=== PATIENT | female | born 1950 | race Caucasian/White ===

== ENCOUNTER 2016-08-28 11:32 | Emergency (ER) | payer MEDICARE, BC ==
[~2016-08-28] VITALS: Ht 172.7 cm; Wt 106.8 kg
[~2016-08-28 11:32] MED LIST: ARMOUR THYROID120 MG PO; ASPIRIN 81M81 MG/TA2 PO; ASPIRIN E.C. 8181 MG; IPRATROPIUM BROM3 M1 IH; LEVAQUIN 750MG750 M1 PO; MEDROL 4MG DOSPA4 MG PO; NIGHT-TIME COL300 ML; NORCO 325 MG-51 TAB PO; PRINIVIL40 MG PO; RT ALBUTER2.5 MG/0.5 IH; ZOFRAN 4MG T4 MG/TAB PO
[2016-08-28 11:40] VITALS: TEMP 98
[2016-08-28] MEDS ORDERED: SYNTHROID0.075 MG/T PO (12:00)
[2016-08-28] MEDS ORDERED: ELIQUIS 5MG PO (12:04)
[2016-08-28 12:33] LABS: INR 1.9 (0.8-3.0); PROTHROMBIN TIME 21.3 SECONDS (9.7-12.8)
[2016-08-28 12:34] LABS: BASO # 0.1 (0.0-0.2); BASO % 0.8 % (0.0-2.0); EOS # 0.2 (0.0-0.7); EOS % 2.7 % (0-4.0); GRAN # 2.7 (1.4-6.5); GRAN % 44.5 % (42.2-75.2); HEMATOCRIT 40.4 % (37.0-47.0); HEMOGLOBIN 13.3 g/dl (12.5-16.0); LYMPH # 2.5 (1.2-3.4); LYMPH % 41.1 % (20.0-51.0); MEAN CELL VOLUME 100 fl (80.0-100.0); MEAN CORPUSCULAR HEMOGLOBIN 33 pg (27.0-31.0); MEAN CORPUSCULAR HGB CONC 33 g/dl (33.0-37.0); MEAN PLATELET VOLUME 12.2 fl (7.4-10.4); MONO # 0.6 (0.1-0.6); MONO % 10.7 % (1.7-9.3); PLATELET COUNT 127 K/mm3 (130-400); RED BLOOD COUNT 4.05 M/mm3 (4.10-5.30); REDCELL DISTRIBUTION WIDTH-CV 14.5 % (11.5-14.5)
[2016-08-28 12:36] LABS: PARTIAL THROMBOPLASTIN TIME 37.2 SECONDS (26.0-37.0)
[2016-08-28 12:41] LABS: ADJUSTED CALCIUM 10.1 mg/dL (8.4-10.2); ALBUMIN 3.6 gm/dL (3.5-5.0); BILIRUBIN,TOTAL 1.2 mg/dL (0.0-1.0); CALCIUM 9.8 mg/dL (8.4-10.2); CREATININE, serum 0.91 mg/dL (0.52-1.25); POTASSIUM 4.3 mmol/L (3.4-5.0); TOTAL PROTEIN 7.8 gm/dL (6.4-8.2)
[2016-08-28 12:52] LABS: TROPONIN-I 0.021 ng/mL (0.000-0.034)
[2016-08-28 14:41] VITALS: BP 118/40; PULSE 48
== END 2016-08-28 14:43 | disposition home or self-care (01) ==
LOC: COL.ER 11:32
PROVIDERS: Family Medicine
DX: R07.89 Other chest pain (principal); I25.10 Atherosclerotic heart disease of native coronary artery without angina pectoris; Z95.1 Presence of aortocoronary bypass graft

== ENCOUNTER → 2016-12-09 | Outpatient (CLI) | payer MEDICARE, BC ==
[~2016-12-09] MED LIST changes: +ELIQUIS 5MG PO; +SYNTHROID0.075 MG/T PO
== END ==
LOC: MC.RAD 09:13
DX: Z12.31 Encounter for screening mammogram for malignant neoplasm of breast (principal)

== ENCOUNTER 2017-01-06 00:57 | Emergency (ER) | payer MEDICARE, BC ==
[2017-01-06 01:02] VITALS: TEMP 98.8
[2017-01-06 01:21] LABS: BASO # 0.1 (0.0-0.2); BASO % 0.6 % (0.0-2.0); EOS # 0.1 (0.0-0.7); EOS % 1.1 % (0-4.0); GRAN # 5.4 (1.4-6.5); GRAN % 63.1 % (42.2-75.2); LYMPH # 2.1 (1.2-3.4); MEAN CELL VOLUME 95 fl (80.0-100.0); MEAN CORPUSCULAR HEMOGLOBIN 32 pg (27.0-31.0); MEAN CORPUSCULAR HGB CONC 33 g/dl (33.0-37.0); MEAN PLATELET VOLUME 11.3 fl (7.4-10.4); MONO # 0.8 (0.1-0.6); MONO % 9.8 % (1.7-9.3); PLATELET COUNT 129 K/mm3 (130-400); REDCELL DISTRIBUTION WIDTH-CV 14.6 % (11.5-14.5); WHITE BLOOD COUNT 8.5 K/mm3 (4.8-10.8)
[2017-01-06 01:26] LABS: INR 1.1 (0.8-3.0); PROTHROMBIN TIME 12.7 SECONDS (9.7-12.8)
[2017-01-06 01:29] LABS: PARTIAL THROMBOPLASTIN TIME 31.2 SECONDS (26.0-37.0)
[2017-01-06 01:31] LABS: ADJUSTED CALCIUM 9.6 mg/dL (8.4-10.2); ALBUMIN 3.5 gm/dL (3.5-5.0); BILIRUBIN,TOTAL 0.6 mg/dL (0.0-1.0); CALCIUM 9.2 mg/dL (8.4-10.2); CREATININE, serum 0.93 mg/dL (0.52-1.25); POTASSIUM 4.3 mmol/L (3.4-5.0); TOTAL PROTEIN 7.7 gm/dL (6.4-8.2)
[2017-01-06 01:43] LABS: TROPONIN-I 0.014 ng/mL (0.000-0.034)
[2017-01-06 04:40] VITALS: BP 145/68; PULSE 82
== END 2017-01-06 04:41 | disposition home or self-care (01) ==
LOC: COL.ER 00:57
PROVIDERS: Emergency Medicine
DX: R07.89 Other chest pain (principal); I25.10 Atherosclerotic heart disease of native coronary artery without angina pectoris; I10 Essential (primary) hypertension; E03.9 Hypothyroidism, unspecified; Z87.891 Personal history of nicotine dependence; Z95.1 Presence of aortocoronary bypass graft; Z98.890 Other specified postprocedural states

== ENCOUNTER 2017-07-19 18:06 | Emergency (ER) | payer MEDICARE, BC ==
[~2017-07-19] VITALS: Ht 172.7 cm; Wt 109.1 kg
[2017-07-19 18:11] VITALS: BP 165/74; TEMP 98.6
[2017-07-19 19:16] LABS: BASO # 0.1 (0.0-0.2); BASO % 0.6 % (0.0-2.0); EOS % 0.2 % (0-4.0); GRAN % 71.3 % (42.2-75.2); HEMATOCRIT 45.1 % (37.0-47.0); HEMOGLOBIN 14.9 g/dl (12.5-16.0); LYMPH # 1.7 (1.2-3.4); LYMPH % 17.5 % (20.0-51.0); MEAN CELL VOLUME 99 fl (80.0-100.0); MEAN CORPUSCULAR HEMOGLOBIN 33 pg (27.0-31.0); MEAN CORPUSCULAR HGB CONC 33 g/dl (33.0-37.0); MEAN PLATELET VOLUME 11.8 fl (7.4-10.4); MONO % 9.9 % (1.7-9.3); PLATELET COUNT 131 K/mm3 (130-400); RED BLOOD COUNT 4.58 M/mm3 (4.10-5.30); REDCELL DISTRIBUTION WIDTH-CV 15.3 % (11.5-14.5)
[2017-07-19 19:24] LABS: ALBUMIN 4.4 gm/dL (3.5-5.0); BILIRUBIN,TOTAL 1.1 mg/dL (0.0-1.0); CALCIUM 10.1 mg/dL (8.4-10.2); CREATININE, serum 1.01 mg/dL (0.52-1.25); POTASSIUM 4.1 mmol/L (3.4-5.0); TOTAL PROTEIN 9.1 gm/dL (6.4-8.2)
[2017-07-19 21:43] VITALS: PULSE 83
== END 2017-07-19 21:31 | disposition home or self-care (01) ==
LOC: COL.ER 18:06
PROVIDERS: Emergency Medicine
DX: R10.11 Right upper quadrant pain (principal); I25.10 Atherosclerotic heart disease of native coronary artery without angina pectoris; Z95.1 Presence of aortocoronary bypass graft; Z98.890 Other specified postprocedural states
CPT/HCPCS: Q9967

== ENCOUNTER 2017-08-22 12:15 | Day surgery (SDC) | payer MEDICARE, BC ==
[~2017-08-22] VITALS: Ht 172.7 cm; Wt 110.0 kg
[2017-08-22 13:07] VITALS: BP 123/70; PULSE 68; TEMP 97.9
[2017-08-22] MEDS ORDERED: [UNRECOGNIZED DRUG - OTHER] PO (13:15)
[2017-08-22] MEDS ORDERED: PHARMASSURE CHE30 MG PO (13:16)
[2017-08-22] MEDS ORDERED: NATURE'S BLEN1200 MG PO (13:17)
[2017-08-22] MEDS ORDERED: VITAMIN B COMPL1 T16 PO (13:18)
[2017-08-22] MEDS ORDERED: VITAMIN E1000 U/CAP PO (13:19)
[2017-08-22] MEDS ORDERED: ARMOUR THYROID90 MG PO (13:20)
[2017-08-22] MEDS ORDERED: NATURE'S BLEND600 M2 PO (13:22)
[2017-08-22] MEDS ORDERED: MILK THISTLE150 MG PO (13:23)
[2017-08-22] MEDS ORDERED: THE MEDICINE S200 M2 PO (13:23)
[2017-08-22] MEDS ORDERED: ASPIRIN E.C. 8181 MG PO (13:25)
[2017-08-22] MEDS ORDERED: PROBIOTIC-MAJOR PO (13:25)
[2017-08-22] MEDS ORDERED: VITAMIN C500 MG PO (13:26)
[2017-08-22] MEDS ORDERED: CHOLESTEROL REDUCTIO PO (13:27)
[2017-08-22] MEDS ORDERED: NUTRIFERON PO (13:28)
[2017-08-22] MEDS ORDERED: CAROTOMAX PO (13:29)
[2017-08-22 15:16] VITALS: BP 129/76; PULSE 64; TEMP 97.2
[2017-08-22 15:30] VITALS: BP 130/80; PULSE 58
[2017-08-22 15:45] VITALS: BP 145/80; PULSE 58
[2017-08-22 16:07] VITALS: BP 141/84; PULSE 59
[2017-08-22 16:35] VITALS: BP 122/68; PULSE 60
== END 2017-08-22 16:45 | disposition home or self-care (01) ==
LOC: SDCO 12:15
DX: K44.9 Diaphragmatic hernia without obstruction or gangrene (principal); K29.30 Chronic superficial gastritis without bleeding; K26.9 Duodenal ulcer, unspecified as acute or chronic, without hemorrhage or perforation; R12 Heartburn; J44.9 Chronic obstructive pulmonary disease, unspecified; I10 Essential (primary) hypertension; I25.10 Atherosclerotic heart disease of native coronary artery without angina pectoris; E03.9 Hypothyroidism, unspecified; I25.2 Old myocardial infarction; Z95.1 Presence of aortocoronary bypass graft; Z88.5 Allergy status to narcotic agent
CPT/HCPCS: J2704; J7030

== ENCOUNTER 2017-11-22 09:48 | Emergency (ER) | payer MEDICARE, BC ==
[~2017-11-22] VITALS: Ht 172.7 cm; Wt 111.4 kg
[~2017-11-22 09:48] MED LIST changes: +ARMOUR THYROID90 MG PO; +ASPIRIN E.C. 8181 MG PO; +CAROTOMAX PO; +CHOLESTEROL REDUCTIO PO; +MILK THISTLE150 MG PO; +NATURE'S BLEN1200 MG PO; +NATURE'S BLEND600 M2 PO; +NUTRIFERON PO; +PHARMASSURE CHE30 MG PO; +PROBIOTIC-MAJOR PO; +THE MEDICINE S200 M2 PO; +VITAMIN B COMPL1 T16 PO; +VITAMIN C500 MG PO; +VITAMIN E1000 U/CAP PO; +[UNRECOGNIZED DRUG - OTHER] PO
[2017-11-22 09:50] VITALS: TEMP 97.8
[2017-11-22] MEDS ORDERED: SYNTHROID0.137 MG (10:18)
[2017-11-22] MEDS ORDERED: LOPRESSOR 550 MG/TAB PO (10:22)
[2017-11-22] MEDS ORDERED: K-TAB10 (10:23)
[2017-11-22] MEDS ORDERED: LASIX 40MG TABL40 MG PO (10:23)
[2017-11-22 10:33] LABS: BASO # 0.1 (0.0-0.2); BASO % 0.7 % (0.0-2.0); EOS # 0.1 (0.0-0.7); EOS % 0.8 % (0-4.0); GRAN # 3.9 (1.4-6.5); GRAN % 54.2 % (42.2-75.2); HEMATOCRIT 41.6 % (37.0-47.0); HEMOGLOBIN 13.8 g/dl (12.5-16.0); LYMPH # 2.4 (1.2-3.4); LYMPH % 32.8 % (20.0-51.0); MEAN CELL VOLUME 97 fl (80.0-100.0); MEAN CORPUSCULAR HEMOGLOBIN 32 pg (27.0-31.0); MEAN CORPUSCULAR HGB CONC 33 g/dl (33.0-37.0); MEAN PLATELET VOLUME 11.6 fl (7.4-10.4); MONO # 0.8 (0.1-0.6); MONO % 11.2 % (1.7-9.3); PLATELET COUNT 122 K/mm3 (130-400); REDCELL DISTRIBUTION WIDTH-CV 14.4 % (11.5-14.5)
[2017-11-22 10:36] LABS: INR 1.2 (0.8-3.0); PROTHROMBIN TIME 13.7 SECONDS (9.7-12.8)
[2017-11-22 10:39] LABS: PARTIAL THROMBOPLASTIN TIME 37.6 SECONDS (26.0-37.0)
[2017-11-22 10:49] LABS: ALBUMIN 3.5 gm/dL (3.5-5.0); CALCIUM 9.1 mg/dL (8.4-10.2); CREATININE, serum 0.68 mg/dL (0.52-1.25); TOTAL PROTEIN 7.6 gm/dL (6.4-8.2)
[2017-11-22 11:00] LABS: TROPONIN-I 0.021 ng/mL (0.000-0.034)
[2017-11-22 11:09] LABS: COLLECTION METHOD CLEAN CATCH
[2017-11-22 11:18] LABS: THYROID STIMULATING HORMONE 1.62 uIU/mL (0.465-4.680)
[2017-11-22 11:21] LABS: PH 7 (5-8); SQUAMOUS EPITHELIAL 0-2 /hpf; URINE APPEARANCE Clear; URINE BACTERIA None Seen /hpf; URINE BILIRUBIN Negative (NEGATIVE); URINE BLOOD Negative (NEGATIVE); URINE COLOR Yellow; URINE GLUCOSE Negative (NEGATIVE); URINE KETONE Negative (NEGATIVE); URINE LEUKOCYTE ESTERASE Negative (NEGATIVE); URINE NITRATE Negative (NEGATIVE); URINE PROTEIN(semi-quant) Negative (NEGATIVE); URINE RBC None Seen /hpf; URINE UROBILINOGEN Negative (NEGATIVE)
[2017-11-22 13:50] VITALS: BP 121/55; PULSE 48
== END 2017-11-22 13:55 | disposition home or self-care (01) ==
LOC: COL.ER 09:48
PROVIDERS: Physician Assistant
DX: R07.89 Other chest pain (principal); I10 Essential (primary) hypertension; K21.9 Gastro-esophageal reflux disease without esophagitis; E03.9 Hypothyroidism, unspecified; Z87.891 Personal history of nicotine dependence; Z88.5 Allergy status to narcotic agent; Z79.82 Long term (current) use of aspirin

== ENCOUNTER → 2018-01-01 | Outpatient (CLI) | payer MEDICARE, BC ==
[~2018-01-01] MED LIST changes: +K-TAB10; +LASIX 40MG TABL40 MG PO; +LOPRESSOR 550 MG/TAB PO; +SYNTHROID0.137 MG
== END ==
LOC: MC.RAD 10:08
DX: Z12.31 Encounter for screening mammogram for malignant neoplasm of breast (principal)

== ENCOUNTER 2018-01-27 09:08 | Inpatient (IN) | payer MEDICARE, BC ==
[~2018-01-27] VITALS: Ht 172.7 cm; Wt 104.5 kg
[~2018-01-27 09:08] MED LIST changes: -K-TAB10; +K-TAB10 PO; -SYNTHROID0.137 MG; +SYNTHROID0.137 MG PO
[2018-01-27 09:53] VITALS: BP 117/56; PULSE 35; TEMP 98.5
[2018-01-27 10:09] LABS: BASO % 0.7 % (0.0-2.0); EOS # 0.1 (0.0-0.7); EOS % 0.8 % (0-4.0); GRAN # 3.4 (1.4-6.5); GRAN % 56.4 % (42.2-75.2); HEMATOCRIT 43.5 % (37.0-47.0); HEMOGLOBIN 14.5 g/dl (12.5-16.0); LYMPH # 1.8 (1.2-3.4); LYMPH % 29.8 % (20.0-51.0); MEAN CELL VOLUME 95 fl (80.0-100.0); MEAN CORPUSCULAR HEMOGLOBIN 32 pg (27.0-31.0); MEAN CORPUSCULAR HGB CONC 33 g/dl (33.0-37.0); MEAN PLATELET VOLUME 11.9 fl (7.4-10.4); MONO # 0.7 (0.1-0.6); MONO % 12.1 % (1.7-9.3); PLATELET COUNT 110 K/mm3 (130-400); RED BLOOD COUNT 4.59 M/mm3 (4.10-5.30); REDCELL DISTRIBUTION WIDTH-CV 13.7 % (11.5-14.5)
[2018-01-27 10:13] LABS: INR 1.3 (0.8-3.0); PROTHROMBIN TIME 14.7 SECONDS (9.7-12.8)
[2018-01-27 10:20] LABS: ALBUMIN 3.8 gm/dL (3.5-5.0); BILIRUBIN,TOTAL 1.5 mg/dL (0.0-1.0); CALCIUM 9.6 mg/dL (8.4-10.2); CREATININE, serum 1.23 mg/dL (0.52-1.25); MAGNESIUM 1.9 mg/dL (1.6-2.3); TOTAL PROTEIN 8.2 gm/dL (6.4-8.2)
[2018-01-27] MEDS ORDERED: ALDACTONE 100M100 MG PO (10:22)
[2018-01-27] MEDS ORDERED: ELIQUIS 5MG PO (10:47)
[2018-01-27 11:47] VITALS: BP 131/65; PULSE 62; TEMP 98.2
[2018-01-27 16:08] VITALS: BP 109/63; PULSE 53; TEMP 98.8
[2018-01-27 19:29] VITALS: BP 118/63; PULSE 55; TEMP 97.9
[2018-01-27 22:49] VITALS: BP 116/53; PULSE 53; TEMP 98.1
[2018-01-28 03:30] VITALS: BP 129/55; PULSE 60; TEMP 97.5
[2018-01-28 08:39] VITALS: BP 111/68; PULSE 58; TEMP 98.5
[2018-01-28 11:32] VITALS: BP 148/87; PULSE 66; TEMP 97.9
[2018-01-28 16:16] VITALS: BP 102/70; PULSE 58; TEMP 98
[2018-01-28 20:02] VITALS: BP 129/70; PULSE 54; TEMP 97.2
[2018-01-28 23:36] VITALS: BP 113/42; PULSE 50; TEMP 97.7
[2018-01-29 03:53] VITALS: BP 102/50; PULSE 53; TEMP 97.5
[2018-01-29 07:11] VITALS: BP 117/53; PULSE 58; TEMP 97.3
[2018-01-29] MEDS ORDERED: BETAPACE 80MG80 MG PO (10:14)
== END 2018-01-29 12:55 | disposition home or self-care (01) | DRG 262 ==
LOC: MEDICAL 09:08
PROVIDERS: Internal Medicine Cardiovascular Disease
PROC: 0JH632Z Insertion of Monitoring Device into Chest Subcutaneous Tissue and Fascia, Percutaneous Approach (ICD-10-PCS; principal; 2018-01-29)
DX: I48.0 Paroxysmal atrial fibrillation (principal); I25.10 Atherosclerotic heart disease of native coronary artery without angina pectoris; Z95.1 Presence of aortocoronary bypass graft; I10 Essential (primary) hypertension; K74.60 Unspecified cirrhosis of liver; E03.9 Hypothyroidism, unspecified
CPT/HCPCS: J0690

== ENCOUNTER → 2018-06-13 | Outpatient (CLI) | payer MEDICARE, BC ==
[~2018-06-13] MED LIST changes: +ALDACTONE 100M100 MG PO; +BETAPACE 80MG80 MG PO
== END ==
LOC: COL.RAD 07:52
DX: Z13.6 Encounter for screening for cardiovascular disorders (principal); I25.119 Atherosclerotic heart disease of native coronary artery with unspecified angina pectoris; I65.22 Occlusion and stenosis of left carotid artery; Z87.891 Personal history of nicotine dependence; Z98.890 Other specified postprocedural states

== ENCOUNTER → 2018-10-23 | Outpatient (CLI) | payer MEDICARE, BC | LOC: COL.VAS 12:25 | DX: M79.604 Pain in right leg (principal); M79.605 Pain in left leg ==

== ENCOUNTER 2018-12-14 20:09 | Emergency (ER) | payer MEDICARE, BC ==
[~2018-12-14] VITALS: Ht 175.3 cm; Wt 110.5 kg
[2018-12-14 20:17] VITALS: BP 188/83; TEMP 97.6
[2018-12-14] MEDS ORDERED: DOXYCYCLINE 10100 MG PO (21:37)
[2018-12-14 22:01] VITALS: PULSE 60
== END 2018-12-14 22:00 | disposition home or self-care (01) ==
LOC: COL.ER 20:09
DX: S40.862A Insect bite (nonvenomous) of left upper arm, initial encounter (principal); I25.10 Atherosclerotic heart disease of native coronary artery without angina pectoris; E03.9 Hypothyroidism, unspecified; F17.210 Nicotine dependence, cigarettes, uncomplicated; Z79.82 Long term (current) use of aspirin; W57.XXXA Bitten or stung by nonvenomous insect and other nonvenomous arthropods, initial encounter